=== PATIENT | male | born 1960 | race Caucasian/White ===

== ENCOUNTER → 2016-10-08 | Outpatient (CLI) | payer OTHER ==
--- NOTE | 2016-10-08 22:59 | US ---
EXAMINATION TYPE: US kidneys/renal and bladder DATE OF EXAM: 10/08/2016 4:15 PM COMPARISON: NONE CLINICAL HISTORY: 56-year-old male, urinary frequency, a single occurrence of hematuria 10 days ago. TECHNIQUE: Multiple sonographic images of the kidneys and bladder were obtained. FINDINGS: Right Kidney: 11.4 x 5.0 x 5.7cm without hydronephrosis. There is a small 9 mm cyst in the upper to mid pole. There is also a 7 mm echogenic focus in the lower pole suspected to represent a nonobstruct ralph calculus. Left Kidney: 11.2 x 5.5 x 4.5cm without hydronephrosis. No gross abnormality of the bladder. Both ureteral jets are visualized. Post Void Residual Volume: 24.4 ml, within normal limits. Incidental finding of a prominent prostate gland measuring approximately 5.1 cm wide and impressing o n to the posterior bladder base. IMPRESSION: 1. No hydronephrosis. 2. A small 9 mm cyst on the right and a possible 7 mm nonobstructive lower pole right renal calculus. 3. There is some residual post void bladder volume of 24 mL but this falls within the normal range. 4. Prostatomegaly with impression onto the posterior bladder base; correlate for possible BPH.
== END | disposition home or self-care (01) ==
LOC: RADUSWWP 15:52
PROVIDERS: ATTEND Urology
DX: N40.0 Benign prostatic hyperplasia without lower urinary tract symptoms (principal); N28.1 Cyst of kidney, acquired
CPT/HCPCS: 76770

== ENCOUNTER → 2016-12-31 | Outpatient (CLI) | payer OTHER | END | disposition home or self-care (01) | LOC: MMGSC 10:26 | PROVIDERS: ATTEND Family Medicine | DX: J02.9 Acute pharyngitis, unspecified (principal) | CPT/HCPCS: 87070 ==

== ENCOUNTER → 2025-01-04 | Outpatient (CLI) | payer MEDICARE ==
--- NOTE | 2025-01-06 18:49 | MR ---
EXAMINATION TYPE: MR Prostate wo/w con DATE OF EXAM: 01/04/2025 6:50 AM COMPARISON: None. CLINICAL INDICATION: Male, 64 years old with history of R97.20 ELEVATED PROSTATE SPECIFIC ANTIGEN [PS A]; Elevated PSA TECHNIQUE: Multi-planar, multi-sequence imaging of the pelvis is performed prior to and following the uncomplicated administration of bolus intravenous gadolinium. IV Contrast: 7 mL Gadobutrol Interpretive Criteria: PI-RADS v2.1 SERUM PSA: 06/2023=2.58 09/2024=3.1 SURGICAL PATHOLOGY: No data available. FINDINGS: Prostatic dimensions: 5.8 x 6.2 x 5.5 cm. Ellipsoid Volume: 103.56 (PSA density=0.03 ng/mL/mL) CENTRAL GLAND (Central and Transition Zones/CZ+TZ): Multiple bilateral, heterogenous appearing hypertrophic stromal nodules, without suspicious lesion. M edian lobe hypertrophy with protrusion into the base of the bladder. (PI-RADS 2) PERIPHERAL ZONE (PZ): Bilateral linear, indistinct wedgelike areas of low ADC, and low T2 signal, No evidence of masslike a bnormality, or localized perfusional hypervascularity, to further suggest a focus of clinically signi ficant prostate cancer. (PI-RADS 2) SEMINAL VESICLES (SV): Symmetric and unremarkable. PERIPROSTATIC TISSUES: Unremarkable. LYMPH NODES: No enlarged pelvic lymph node. REMAINING PELVIS: Bladder wall is within normal limits given distention. No abnormal free or organized intrapelvic fluid collection. No pathologic bowel dilation or mural thickening. Right fat containing inguinal hernia OSSEOUS STRUCTURES: No suspicious osseous abnormality. IMPRESSION: 1. No specific features for high-risk prostate cancer. Maximum PI-RADS score: 2. 2. Substantial BPH, estimated gland volume 103.56 (PSA density=0.03 ng/mL/mL) 3. No suspicious osseous lesion. No lymphadenopathy. No evidence of prostate adenocarcinoma involving the periprostatic tissues. [facility], , 01/06/2025 6:46 PM
== END | disposition home or self-care (01) ==
LOC: RADMRIMAIN 05:43
PROVIDERS: ATTEND Urology
DX: N40.0 Benign prostatic hyperplasia without lower urinary tract symptoms (principal); R97.20 Elevated prostate specific antigen [PSA]
CPT/HCPCS: 72197; A9585